=== PATIENT | male | born 1980 | race Caucasian/White ===

== ENCOUNTER 2016-05-23 01:23 | Emergency (ER) | payer MEDICAID ==
[2016-05-23 01:36] VITALS: RESP 20; TEMP 97.5
[2016-05-23] MEDS ORDERED: HYDROCODONE/APAP 5/325 TAB PO ONE (01:48)
--- NOTE | 2016-05-23 01:51 | EDPHY ---
H & P Stated Complaint: LEFT SHOULDER DISLOCATED, HPI/ROS: HPI CHIEF COMPLAINT: Left shoulder pain HISTORY OF PRESENT ILLNESS: This patient very pleasant 36-year-old male, significant past medical history for chronic back pain, presents emergency room at 1:49 a.m. in the morning with left shoulder pain. Patient tells me that tripped over a log while walking out of his house he landed with an outstretched hand and arm bracing his fall and immediately had left anterior shoulder pain. Patient thinks he either fracture shoulder or dislocated it. He has never had a dislocation. He denies any other areas of injury. His pain is mainly located anterior left shoulder worse with shoulder movement. No wrist pain or elbow pain. Past Medical History: Chronic neck and back pain Past Surgical History: Back surgery Social History: lives in [place]. Denies drugs use alcohol tobacco Family History: Noncontributory ROS REVIEW OF SYSTEMS: A comprehensive 10 point review of systems is otherwise negative aside from elements mentioned in the history of present illness. Exam Constitutional triage nursing summary reviewed, vital signs reviewed, awake/ alert. Eyes normal conjunctivae and sclera, EOMI, PERRLA. HENT normal inspection, atraumatic, moist mucus membranes, no epistaxis, neck supple/ no meningismus, no raccoon eyes. Respiratory clear to auscultation bilaterally, normal breath sounds, no respiratory distress, no wheezing. Cardiovascular rate normal, regular rhythm, no murmur, no edema, distal pulses normal. Gastrointestinal soft, non-tender, no rebound, no guarding, normal bowel sounds, no distension, no pulsatile mass. Genitourinary no CVA tenderness. Musculoskeletal left shoulder: Tender palpation down the anterior shoulder, axillary nerve is intact, full range of motion but does have pain, no obvious gross deformity, distally neurovascular intact good cap refill, good pulse, good air drier strength, no midline vertebral tenderness, full range of motion, no calf swelling, no tenderness of extremities, no meningismus, good pulses, neurovascularly intact. Skin pink, warm, & dry, no rash, skin atraumatic. Neurologic awake, alert and oriented x 3, AAOx3, moves all 4 extremities equally, motor intact, sensory intact, CN II-XII intact, normal cerebellar, normal vision, normal speech. Psychiatric normal mood/affect. Heme/Lymph/Immune no lymphadenopathy. Differential Diagnosis: includes but is not limited to in a particular order shoulder dislocation, shoulder fracture, soft tissue injury, tendinitis, musculoskeletal strain Medical Decision Making: Plan for this patient be given [place] p. o. for pain control, ice pack for shoulder and x-ray of his shoulder Re-evaluation: ED x-ray left shoulder: this shows a humeral neck fracture as well as humeral head fracture comminuted. No evidence of dislocation. 0211: At this time consulting Orthopedics. Spoke with Karine FLORES with Dr. Reese. Recommend sling, pain medicine, ice follow-up palpation office. ED x-ray: Left shoulder: This shows a comminuted impacted left humeral head and neck fracture. This is closed. 0222: I did update this patient about his x-ray findings he understands he is shoulder fracture. We placed in a sling, ice pack and narcotic pain medicine for acute pain control. He did receive [place] here in the emergency room. His pain is slightly improved. It is noted he is not neurovascularly intact distally good cap refill, good air drier strength, full range of motion. He does have pain with range of motion of his left shoulder. Source: Patient - Personal History Current Tetanus/Diphtheria Vaccine: Yes Current Tetanus Diphtheria and Acellular Pertussis (TDAP): Yes Tetanus Vaccine Date: 2007 - Medical/Surgical History Hx Asthma: Yes Hx Chronic Respiratory Disease: No Hx Diabetes: No Hx Cardiac Disease: No Hx Renal Disease: No Hx Cirrhosis: No Hx Alcoholism: No Hx HIV/AIDS: No Hx Splenectomy or Spleen Trauma: No Other PMH: PMH- asthma, borderline HTN, kidney stones, osteomyelitis. PSH- ortho, lithotripsy - Social History Smoking Status: Current some day smoker Constitutional: Initial Vital Signs Temperature (C) 36.4 C 05/23/16 01:25 Heart Rate 97 05/23/16 01:25 Respiratory Rate 20 05/23/16 01:25 Blood Pressure 151/104 H 05/23/16 01:25 O2 Sat (%) 98 05/23/16 01:25 O2 Delivery Mode Room Air Allergies/Adverse Reactions: ceftriaxone sodium [From Rocephin] Allergy (Verified 05/23/16 01:36) Sulfa (Sulfonamide Antibiotics) Allergy (Verified 05/23/16 01:36) Home Medications: Medication Instructions Recorded Carisoprodol [Soma] 250 mg PO 05/23/16 GABAPENTIN 400 mg PO 05/23/16 Hydrocodone/APAP 5/325 [[place] 1 - 2 tab PO Q4H PRN #20 tab 05/23/16 5/325] Lisinopril 05/23/16 Medical Decision Making - Data Points Medications Given: Discontinued Medications Hydrocodone Bitart/Acetaminophen ([place] 5/325) 1 tab PO EDNOW ONE Stop: 05/23/16 01:49 Last Admin: 05/23/16 01:52 Dose: 1 tab Departure - Departure Disposition: Home, Routine, Self-Care Clinical Impression: Humerus fracture Qualifiers: Encounter type: initial encounter Humerus Location: proximal Fracture type: closed Fracture morphology: unspecified fracture morphology Laterality: left Qualified Code(s): S42.202A - Unspecified fracture of upper end of left humerus , initial encounter for closed fracture Condition: Good Instructions: Arm Fracture in Adults (ED), Scapular Fracture (ED) Additional Instructions: 1. Stay in your sling for comfort 2. ice your shoulder. 3. Please follow up with Orthopedics outpatient. Please call their for an appointment. 4. I prescribed her narcotic pain medicine call [facility] this can make her sleepy do not drive with it do not combine it with alcohol. This is for acute pain. Referrals: Sina Zavala MD [Primary Care Provider] - As per Instructions Marcio Reese MD [Medical Doctor] - As per Instructions Prescriptions: Hydrocodone/APAP 5/325 [[place] 5/325] 1 - 2 tab PO Q4H PRN #20 tab PRN Reason: Pain, Moderate
[2016-05-23] MEDS ORDERED: HYDROCOD/APAP 5/325 PREPACK#6 BTL TAKEHOME ONE (02:30)
[2016-05-23 02:48] VITALS: BP 119/68; PULSE 102; O2SAT 96
== END 2016-05-23 02:47 | disposition home or self-care (01) ==
DX: S42.202A Unspecified fracture of upper end of left humerus, initial encounter for closed fracture (principal); J45.909 Unspecified asthma, uncomplicated; I10 Essential (primary) hypertension; F17.200 Nicotine dependence, unspecified, uncomplicated; W01.198A Fall on same level from slipping, tripping and stumbling with subsequent striking against other object, initial encounter; Y92.009 Unspecified place in unspecified non-institutional (private) residence as the place of occurrence of the external cause; Y99.8 Other external cause status; Y93.01 Activity, walking, marching and hiking
CPT/HCPCS: A4565

== ENCOUNTER → 2016-07-12 | Outpatient (CLI) | payer MEDICAID | LOC: FIMAGING 15:27 | PROVIDERS: ATTEND Family Medicine | DX: S42.202D Unspecified fracture of upper end of left humerus, subsequent encounter for fracture with routine healing (principal) ==

== ENCOUNTER 2017-11-21 09:14 | Emergency (ER) | payer SELFPAY ==
[2017-11-21 09:27] VITALS: BP 174/112
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
== END 2017-11-21 10:29 | disposition home or self-care (01) ==
PROC: 0H9AXZZ Drainage of Inguinal Skin, External Approach (ICD-10-PCS; principal; 2017-11-21)
DX: L02.214 Cutaneous abscess of groin (principal); J45.909 Unspecified asthma, uncomplicated; I10 Essential (primary) hypertension; F17.200 Nicotine dependence, unspecified, uncomplicated; Z88.2 Allergy status to sulfonamides; Z88.1 Allergy status to other antibiotic agents